=== PATIENT | female | born 1995 | race Caucasian/White ===

== ENCOUNTER 2019-11-13 10:17 | Outpatient (CLI) | payer OTHER, SELFPAY ==
--- NOTE | ~2019-11-13 | CT_ITS ---
EXAMINATION: CT sinus wo con DATE: 11/13/2019 10:40 INDICATION: Chronic sinusitis TECHNIQUE: Computed tomography (CT) of the paranasal sinuses was performed without intravenous contra st. The dose-length product (DLP) was 320.99 mGy-cm. Iterative reconstruction was used. COMPARISON: None FINDINGS: There is normal development and pneumatization of the paranasal sinuses. There has been int erval surgical change involving the medial romero of the maxillary sinuses. There is near complete opa cification of the left maxillary sinus and moderate opacification of the right maxillary sinus. The b ilateral anterior ethmoidal air cells and right posterior ethmoidal air cells are nearly completely o pacified. There is mucosal thickening in the left posterior ethmoidal air cells. The sphenoid sinuses are clear. There is mild mucosal thickening of the left frontal sinus. The right frontal sinus is cl ear. There is unchanged mild rightward deviation of the nasal septum. The bilateral ostiomeatal compl exes are occluded. Visualized soft tissues are unremarkable. The mastoid air cells are clear. There a re no pathologically enlarged lymph nodes. IMPRESSION: 1. Sinusitis as detailed above with interval surgical change of the maxillary sinuses. Reviewed, dictated and finalized at location B. IMPRESSION: 1. Sinusitis as detailed above with interval surgical change of the maxillary s inuses.
== END 2019-11-13 10:18 | disposition home or self-care (01) ==
PROVIDERS: PCP Internal Medicine; Visit Provider Internal Medicine
DX: J32.9 Chronic sinusitis, unspecified (principal)
CPT/HCPCS: 70486

== ENCOUNTER 2020-03-26 02:36 | Outpatient (CLI) | payer OTHER, SELFPAY ==
[2020-03-26 18:57] LABS: SARS-CoV-2 RNA PCR Negative
== END 2020-03-26 02:37 | disposition home or self-care (01) ==
LOC: ANHCOVIDDT 02:37
PROVIDERS: PCP Internal Medicine; Visit Provider Otolaryngology
DX: Z01.812 Encounter for preprocedural laboratory examination (principal); Z11.59 Encounter for screening for other viral diseases
CPT/HCPCS: 87635; C9803; U0003

== ENCOUNTER 2020-03-29 00:51 | Day surgery (SDC) | payer OTHER, SELFPAY ==
[2020-03-15 17:11] VITALS: BMI 41.3
[2020-03-29] VITALS (8 sets, daily range): BP systolic 96–126; BP diastolic 60–84; PULSE 56–107; RESP 11–18; TEMP 36.3–37.1; O2SAT 95–100
--- NOTE | 2020-03-29 06:39 | WPDANESEPPF ---
Anes - Initial Pre Proc Eval Procedure: Operation Date: 03/29/20 07:30 Proposed Procedures p Bilateral Frontal Sinusotomy, Bilateral Ethmoidectomy, Possible Bilateral Sphenoidectomy, Bilateral Maxillary Antrostomy, Bilateral Turbinate Reduction, Fusion Protocol - Brant Decker MD s Possible Septoplasty - Brant Decker MD Date/Time: 03/29/20 06:39 Surgeon: Brant Decker MD Pre Op Diagnosis: CHRONIC SINUSITIS, DEVIATED SEPTUM Patient Data Age: 24 Gender: F Height: 5 ft 4 in Weight: 109.09 kg Allergies Allergy/AdvReac Type Severity Reaction Status Date / Time No Known Allergies Allergy Verified 03/15/20 17:08 Home Medications Medication Instructions Recorded Confirmed Type alprazolam 0.5 mg tablet 0.5 mg PO BID PRN #20 tablet 01/15/20 03/15/20 Rx biotin 10 mg tablet 10 mg PO DAILY 01/15/20 03/15/20 History ferrous sulfate 325 mg (65 mg 325 mg PO BID 01/15/20 03/15/20 History iron) tablet loratadine 10 mg tablet 10 mg PO DAILY 01/15/20 03/15/20 History mecobalamin (vitamin B12) 1,000 1,000 mcg PO DAILY 01/15/20 03/15/20 History mcg chewable tablet multivitamin 1 tablet PO DAILY 01/15/20 03/15/20 History norethindrone 1 mg-ethinyl 1 tablet PO DAILY 01/15/20 03/15/20 History estradiol 35 mcg tablet montelukast 10 mg tablet 10 mg PO DAILY #90 tablet 01/22/20 03/15/20 Rx pseudoephedrine HCl 30 mg tablet 30 mg PO Q4-6H PRN #270 tablet 01/22/20 03/15/20 Rx sertraline 100 mg tablet 100 mg PO DAILY #90 tablet 01/22/20 03/15/20 Rx thyroid (pork) 30 mg tablet 30 mg PO DAILY #90 tablet 01/22/20 03/15/20 Rx fluticasone propionate [Flonase 1 spray INTRANASAL DAILY 03/15/20 03/15/20 History Allergy Relief] Patient hx anesthesia problems: none Family hx anesthesia problems: none PMFSH Past Medical History Medical History (Updated 03/29/20 @ 06:42 by Jose Miguel Bell MD) Hypothyroidism Morbid obesity Surgical History Surgical History (Updated 03/29/20 @ 06:43 by Jose Miguel Bell MD) History of cholecystectomy History of gastric bypass Social History Social History Smoking status: Never smoker Second hand tobacco smoke exposure: No Alcohol intake: former Substance use: never Living arrangements: with family Spiritual care concerns: No Anes - Eval Final PreProcedure Day of Procedure 03/29/20 06:39 Patient weight: morbidly obese Heart: regular rate and rhythm Lungs: clear to auscultation Airway: Mallampati scale class II Neurological: alert and oriented Last oral intake: >/= 8 hours ASA classification: III Emergent: no Anesthetic plan: proceed Anesthesia type and monitoring: general ETT and standard monitoring Informed Consent: The patient's anesthetic plan and its attendant risks and benefits were discussed with the patient/family/POA. Questions were solicited and answers provided to the satisfaction of the patient/family/POA.
[2020-03-29] MEDS: LACTATED RINGERS 1,000 ML 30 ML IV CONT ×2 (06:50→08:37)
[2020-03-29] MEDS: OXYMETAZOLINE HCL 0.05% NAS 15 ML BTL (*BKC) 1 SPRAY NASAL (06:58)
[2020-03-29] MEDS: ACETAMINOPHEN 500 MG TABLET 1000 MG PO (06:58)
[2020-03-29 07:08] LABS: Hematocrit 37.8 % (37.0-47.0); Hemoglobin 12.8 g/dL (12.0-15.0)
--- NOTE | 2020-03-29 07:26 | PM.IMHP ---
H&P: HPI History of Present Illness Date/Time: 03/29/20 07:26 Chief complaint: CHRONIC SINUSITIS, DEVIATED SEPTUM Narrative: Leticia Figueroa is a 24 year old female with chronic sinusitis Review of Systems Review of Systems: All systems reviewed & are unremarkable except as noted in HPI and below PMFSH Past Medical History Medical History Hypothyroidism Morbid obesity Surgical History Surgical History History of cholecystectomy History of gastric bypass Family History Family History Mother Patient's mother is in good health Father Patient's father is in good health Sibling Patient's sister is in good health Patient's brother is in good health Social History Social History Smoking status: Never smoker Second hand tobacco smoke exposure: No Alcohol intake: former Substance use: never Living arrangements: with family Spiritual care concerns: No Meds Home Medications and Allergies Home Medications Medication Instructions Recorded Confirmed Type alprazolam 0.5 mg tablet 0.5 mg PO BID PRN #20 tablet 01/15/20 03/15/20 Rx biotin 10 mg tablet 10 mg PO DAILY 01/15/20 03/15/20 History ferrous sulfate 325 mg (65 mg 325 mg PO BID 01/15/20 03/15/20 History iron) tablet loratadine 10 mg tablet 10 mg PO DAILY 01/15/20 03/15/20 History mecobalamin (vitamin B12) 1,000 1,000 mcg PO DAILY 01/15/20 03/15/20 History mcg chewable tablet multivitamin 1 tablet PO DAILY 01/15/20 03/15/20 History norethindrone 1 mg-ethinyl 1 tablet PO DAILY 01/15/20 03/15/20 History estradiol 35 mcg tablet montelukast 10 mg tablet 10 mg PO DAILY #90 tablet 01/22/20 03/15/20 Rx pseudoephedrine HCl 30 mg tablet 30 mg PO Q4-6H PRN #270 tablet 01/22/20 03/15/20 Rx sertraline 100 mg tablet 100 mg PO DAILY #90 tablet 01/22/20 03/15/20 Rx thyroid (pork) 30 mg tablet 30 mg PO DAILY #90 tablet 01/22/20 03/15/20 Rx fluticasone propionate [Flonase 1 spray INTRANASAL DAILY 03/15/20 03/15/20 History Allergy Relief] Allergies Allergy/AdvReac Type Severity Reaction Status Date / Time No Known Allergies Allergy Verified 03/29/20 07:20 Exam Narrative: Exam Narrative: chronic sinusitis H&P: Results Labs Labs: Short CBC 03/29/20 Range/Units 06:49 Hgb 12.8 (12.0-15.0) g/dL Hct 37.8 (37.0-47.0) % Assessment and Plan Assessment and plan (1) Chronic sinusitis: Code(s): J32.9 - Chronic sinusitis, unspecified Status: Acute Assessment and Plan: Hillary is here for revision endoscopic sinus surgery - frontal, ethmoid,maxillary and sphenoid sinus revision, turbinoplasty. Refer to outpatient H&P for full details.
[2020-03-29] MEDS: ceFAZolin 2 GM/D5W 50 ML 2 GM/50 ML BAG IVPB (07:32)
[2020-03-29] MEDS: LIDO 1%/EPINEPHRINE 1:100,000 20 ML VIAL 10 ML INFILTRATE (07:40)
--- NOTE | 2020-03-29 08:33 | P.OP_ITS ---
Procedure Note - Detailed Date of procedure: 03/29/20 Pre-op diagnosis: CHRONIC SINUSITIS, DEVIATED SEPTUM Post-op diagnosis: same Procedure performed: Bilateral frontal sinusotomy, total ethmoidectomy, sphenoidotomy and maxillary antrostomy. bilateral inferior turbinoplasty. Image guided surgery. Description of procedure: On the date of procedure the patient was met in the preoperative area and risk and benefits of the procedure reviewed with the patient as documented in the H&P and they elected to proceed with surgery. Patient was brought back to the operating room by the anesthesia team and underwent general endotracheal anesthe joanna. Once an adequate plane of anesthesia was obtained a timeout was performed to assure the patient identification the patient here to be performed were correct. They were.The patient was then prepped and draped in the normal fashion for endoscopic sinus surgery. The diffusion image guidance system was calibrated and used for the entire case. Afrin-soaked pledgets were placed in the nasal cavities bilaterally. The entire case was performed under endoscopic visualization. Nasal endoscopy was performed at the beginning of the case. 1% lidocaine with 1:100,000 epinephrine was then injected into the root of the middle turbinate and lateral nasal wall. Attention was first directed towards the right side. There was significant retained uncinate that required revision. The maxillary antrostomy was also revised. The microdebrider was used to open the anterior ethmoid bulla. Careful dissection was carried out posteriorly, through the basal lamella and posterior ethmoid cells until the sphenoid rostrum was identified. A Oscar suction bluntly identified the sphenoid os and the opening was widened with microdebrider and mushroom punch to 5mm. Using an image guided curved suction as well as J-curette, the posterior most ethmoid cell was identified and the ethmoids were bluntly fractured and dissected from posterior to anterior along the base of the skull. The remaining bone fragments were removed with appropriate curved instruments and microdebrider. Lastly, the frontal sinus was identified using image guided seeker, suction. [place] nasi cell was removed anteriorly to widen entrance to the sinus and bone fragments removed using sharp and powered dissection. Next, The left maxillary antrostomy, ethmoidectomy, sphenoidotomy and frontal sinusotoy were carried out in identical fashion. No clinical evidence of CSF throughout the case. With all sinuses opened and no remaining polyp disease appreciated, nasopore packing was placed in the ethmoid acvities bilaterally. Hemostasis was ensured. Lastly, the bilateral inferior turbiantes were reduced submucosally using 2mm microdebrider and then outfractured with a sayer elevator. This significantly opened the airway. At this point, the procedure was concluded. Care the patient was transferred back to the anesthesia team and the patient was awoke in the operating room and transferred back to the PACU in stable condition. Brant Decker M.D. Surgeon: Brant Decker MD Estimated blood loss (mL): 30 Drains: No Packing: Yes (bilateral nasopore) Pathology: none sent Complications: No immediate complications Condition: stable Disposition: same day Findings: Bilateral retained uncinate, left worse than right infection and mucous within sinuses. Septoplasty not performed due to easy access and lack of obstruction.
== END 2020-03-29 10:31 | disposition home or self-care (01) ==
PROVIDERS: Anesthesiology; PCP Internal Medicine; Visit Provider Otolaryngology
PROC: (CPT 31257; principal; 2020-03-29 07:30)
DX: J32.9 Chronic sinusitis, unspecified (principal); J34.2 Deviated nasal septum; E03.9 Hypothyroidism, unspecified; E66.01 Morbid (severe) obesity due to excess calories; Z68.41 Body mass index [BMI] 40.0-44.9, adult; Z98.84 Bariatric surgery status
CPT/HCPCS: 31257; 31253; 31256; 30140; 61782; 36415; 85014; 85018; A9270; J0330; J0690; J1100; J2250; J2405; J2704; J3010; J7120

== ENCOUNTER 2020-12-03 16:05 | Outpatient (CLI) | payer OTHER, SELFPAY | END 2020-12-03 16:06 | disposition home or self-care (01) | LOC: ANHCOVIDVC 16:05 | PROVIDERS: PCP Internal Medicine | DX: Z23 Encounter for immunization (principal) | CPT/HCPCS: 0001A; 91300 ==

== ENCOUNTER 2020-12-24 16:35 | Outpatient (CLI) | payer OTHER, SELFPAY | END 2020-12-24 16:36 | disposition home or self-care (01) | LOC: ANHCOVIDVC 16:35 | PROVIDERS: PCP Internal Medicine | DX: Z23 Encounter for immunization (principal) | CPT/HCPCS: 0002A; 91300 ==

== ENCOUNTER 2021-05-31 06:57 | Outpatient (CLI) | payer OTHER, SELFPAY ==
[2021-05-31 07:31] LABS: Basophils Percent Auto 0.3 % (0.2-1.2); Eosinophils Absolute Auto 0.1 K/mm3 (0-0.3); Eosinophils Percent Auto 1.3 % (0-4.4); Hematocrit 39.8 % (37.0-47.0); Hemoglobin 12.9 g/dL (12.0-15.0); Immature Granulocyte Absolute 0.02 K/mm3 (0.00-0.031); Immature Granulocyte Percent A 0.2 % (0-0.5); Lymphocytes Percent Auto 38.5 % (18.3-44.2); Mean Corpuscular HGB Conc 32.4 g/dl (32-36); Mean Corpuscular Hemoglobin 30.9 pg (26-34); Mean Corpuscular Volume 95.4 fl (80-100); Mean Platelet Volume 10.2 fl (7.4-10.4); Monocytes Absolute Auto 0.5 K/mm3 (0.1-0.6); Monocytes Percent Auto 5.1 % (2.6-8.5); Neutrophils Absolute Auto 5.2 K/mm3 (1.3-6.7); Neutrophils Percent Auto 54.6 % (45.5-73.1); Platelet Count Result 278 k/mm3 (150-375); Red Blood Count 4.17 M/mm3 (4.2-5.4); Red Cell Distribution Width 12.1 % (11.5-14.5); White Blood Count 9.6 K/mm3 (4.5-10.0)
[2021-05-31 08:39] LABS: Alanine Aminotransferase 18 U/L (4-35); Albumin Level 4.4 g/dL (3.5-5.1); Alkaline Phosphatase 93 U/L (38-126); Anion Gap 11 mmol/L (8-16); Aspartate Amino Transferase 23 U/L (14-36); Bilirubin,Total 0.4 mg/dL (0.2-1.3); Blood Urea Nitrogen 11 mg/dL (7-17); Carbon Dioxide 27 mmol/L (22-30); Chloride 104 mmol/L (98-107); Cholesterol 156 mg/dL (0-200); Estimated Glomerular Filt Rate > 60; Glucose 86 mg/dL (65-110); HDL Direct 52 mg/dL; Sodium 142 mmol/L (137-145); Triglycerides 87 mg/dL (<150)
[2021-05-31 08:44] LABS: Iron 56 ug/dL (37-170)
[2021-05-31 08:50] LABS: LDL Cholesterol Direct 80 mg/dL
[2021-05-31 08:56] LABS: Percent Iron Saturation 18 % (20-50)
[2021-05-31 08:59] LABS: Free T4 Free Thyroxine 1.14 ng/mL (0.78-2.19)
[2021-05-31 09:46] LABS: Folic Acid > 20.0 ng/mL (2.76->20); Vitamin B12 > 1000.0 pg/mL (239-931)
== END 2021-05-31 06:58 | disposition home or self-care (01) ==
LOC: ANHLAB 07:00
PROVIDERS: PCP Physician Assistant; Visit Provider Internal Medicine
DX: Z00.00 Encounter for general adult medical examination without abnormal findings (principal); Z98.84 Bariatric surgery status; E61.1 Iron deficiency; E03.9 Hypothyroidism, unspecified
CPT/HCPCS: 36415; 80053; 80061; 82607; 82728; 82746; 83540; 83550; 84439; 84443; 85025

== ENCOUNTER 2022-06-17 10:05 | Outpatient (CLI) | payer OTHER, SELFPAY ==
[2022-06-17 10:22] LABS: Basophils Percent Auto 0.2 % (0.2-1.2); Eosinophils Absolute Auto 0.1 K/mm3 (0-0.3); Eosinophils Percent Auto 0.9 % (0-4.4); Hematocrit 37.4 % (37.0-47.0); Hemoglobin 12.2 g/dL (12.0-15.0); Immature Granulocyte Absolute 0.02 K/mm3 (0.00-0.031); Immature Granulocyte Percent A 0.2 % (0-0.5); Lymphocytes Absolute Auto 3.43 K/mm3 (0.9-3.2); Lymphocytes Percent Auto 36.5 % (18.3-44.2); Mean Corpuscular HGB Conc 32.6 g/dl (32-36); Mean Corpuscular Hemoglobin 29.5 pg (26-34); Mean Corpuscular Volume 90.3 fl (80-100); Mean Platelet Volume 9.8 fl (7.4-10.4); Monocytes Absolute Auto 0.4 K/mm3 (0.1-0.6); Monocytes Percent Auto 4.6 % (2.6-8.5); Neutrophils Absolute Auto 5.4 K/mm3 (1.3-6.7); Neutrophils Percent Auto 57.6 % (45.5-73.1); Platelet Count Result 316 k/mm3 (150-375); Red Blood Count 4.14 M/mm3 (4.2-5.4); Red Cell Distribution Width 12.8 % (11.5-14.5); White Blood Count 9.4 K/mm3 (4.5-10.0)
[2022-06-17 10:36] LABS: Alanine Aminotransferase 21 U/L (6-35); Albumin Level 4.2 g/dL (3.5-5.1); Alkaline Phosphatase 91 U/L (38-126); Anion Gap 9 mmol/L (8-16); Aspartate Amino Transferase 23 U/L (14-36); Bilirubin,Total 0.5 mg/dL (0.2-1.3); Blood Urea Nitrogen 5 mg/dL (7-17); Calcium 8.2 mg/dL (8.4-10.2); Carbon Dioxide 25 mmol/L (22-30); Chloride 103 mmol/L (98-107); Cholesterol 136 mg/dL (0-200); Estimated Glomerular Filt Rate > 60; Glucose 92 mg/dL (65-110); HDL Direct 49 mg/dL; Potassium 3.5 mmol/L (3.4-5.0); Sodium 137 mmol/L (137-145); Triglycerides 61 mg/dL (<150)
[2022-06-17 10:47] LABS: LDL Cholesterol Direct 64 mg/dL
[2022-06-17 11:04] LABS: Free T4 Free Thyroxine 1.08 ng/mL (0.78-2.19)
[2022-06-17 11:56] LABS: Folic Acid > 20.0 ng/mL (2.76->20); Vitamin B12 > 1000.0 pg/mL (239-931)
== END 2022-06-17 10:06 | disposition home or self-care (01) ==
LOC: ANHLAB 10:08
PROVIDERS: PCP Physician Assistant; Visit Provider Internal Medicine
DX: Z00.00 Encounter for general adult medical examination without abnormal findings (principal); E03.9 Hypothyroidism, unspecified; R53.83 Other fatigue
CPT/HCPCS: 36415; 80053; 80061; 82607; 82746; 84439; 84443; 85025

== ENCOUNTER 2023-05-28 13:23 | Outpatient (CLI) | payer OTHER, SELFPAY ==
[2023-05-28 14:30] LABS: Basophils Percent Auto 0.4 % (0.2-1.2); Eosinophils Absolute Auto 0.1 K/mm3 (0-0.3); Eosinophils Percent Auto 0.8 % (0-4.4); Hematocrit 38.2 % (37.0-47.0); Hemoglobin 12.1 g/dL (12.0-15.0); Immature Granulocyte Absolute 0.04 K/mm3 (0.00-0.031); Immature Granulocyte Percent A 0.4 % (0-0.5); Lymphocytes Absolute Auto 3.31 K/mm3 (0.9-3.2); Mean Corpuscular HGB Conc 31.7 g/dl (32-36); Mean Corpuscular Hemoglobin 29.1 pg (26-34); Mean Corpuscular Volume 91.8 fl (80-100); Mean Platelet Volume 10.6 fl (7.4-10.4); Monocytes Absolute Auto 0.3 K/mm3 (0.1-0.6); Monocytes Percent Auto 3.6 % (2.6-8.5); Neutrophils Absolute Auto 5.7 K/mm3 (1.3-6.7); Neutrophils Percent Auto 59.8 % (45.5-73.1); Platelet Count Result 320 k/mm3 (150-375); Red Blood Count 4.16 M/mm3 (4.2-5.4); White Blood Count 9.5 K/mm3 (4.5-10.0)
[2023-05-28 14:40] LABS: Alanine Aminotransferase 16 U/L (6-35); Albumin Level 4.1 g/dL (3.5-5.1); Alkaline Phosphatase 89 U/L (38-126); Anion Gap 5 mmol/L (8-16); Aspartate Amino Transferase 21 U/L (14-36); Bilirubin,Total 0.4 mg/dL (0.2-1.3); Blood Urea Nitrogen 12 mg/dL (7-17); Calcium 8.4 mg/dL (8.4-10.2); Carbon Dioxide 25 mmol/L (22-30); Chloride 105 mmol/L (98-107); Estimated Glomerular Filt Rate > 60; Glucose 118 mg/dL (65-110); Sodium 135 mmol/L (137-145)
== END 2023-05-28 13:24 | disposition home or self-care (01) ==
PROVIDERS: PCP Internal Medicine; Visit Provider Physician Assistant
DX: R42 Dizziness and giddiness (principal)
CPT/HCPCS: 36415; 80053; 84443; 85025

== ENCOUNTER 2024-08-27 09:21 | Outpatient (CLI) | payer OTHER, SELFPAY ==
[2024-08-27 19:20] LABS: Hematocrit 38.8 % (37.0-47.0); Hemoglobin 12.1 g/dL (12.0-15.0); Mean Corpuscular HGB Conc 31.2 g/dl (32-36); Mean Corpuscular Volume 96.3 fl (80-100); Mean Platelet Volume 10.8 fl (7.4-10.4); Platelet Count Result 323 k/mm3 (150-375); Red Blood Count 4.03 M/mm3 (4.2-5.4); Red Cell Distribution Width 12.9 % (11.5-14.5); White Blood Count 9.5 K/mm3 (4.5-10.0)
[2024-08-27 20:02] LABS: Alanine Aminotransferase 13 U/L (6-35); Alkaline Phosphatase 78 U/L (38-126); Anion Gap 8 mmol/L (4-12); Aspartate Amino Transferase 38 U/L (14-36); Bilirubin,Total 0.5 mg/dL (0.2-1.3); Blood Urea Nitrogen 13 mg/dL (7-17); Calcium 8.7 mg/dL (8.4-10.2); Carbon Dioxide 26 mmol/L (22-30); Chloride 104 mmol/L (98-107); Cholesterol 171 mg/dL (0-200); Estimated Glomerular Filt Rate > 60; Glucose 68 mg/dL (65-110); HDL Direct 46 mg/dL; Sodium 138 mmol/L (137-145); Triglycerides 125 mg/dL (<150)
[2024-08-27 20:02] LABS: Free T4 Free Thyroxine 1.06 ng/dL (0.78-2.19)
[2024-08-27 20:13] LABS: LDL Cholesterol Direct 89 mg/dL
[2024-08-27 21:56] LABS: Hemoglobin A1C 5.2 % (<5.7)
== END 2024-08-27 09:22 | disposition home or self-care (01) ==
LOC: ANHBWCLAB 09:22
PROVIDERS: PCP Nurse Practitioner; Visit Provider Nurse Practitioner
DX: Z00.00 Encounter for general adult medical examination without abnormal findings (principal); E03.9 Hypothyroidism, unspecified; E61.1 Iron deficiency; E66.01 Morbid (severe) obesity due to excess calories; Z68.42 Body mass index [BMI] 45.0-49.9, adult; F32.9 Major depressive disorder, single episode, unspecified
CPT/HCPCS: 36415; 80053; 80061; 83036; 84439; 84443; 85027